=== PATIENT | male | born 1985 | race Caucasian/White ===

== ENCOUNTER 2016-07-21 17:55 | Emergency (ER) | payer SELFPAY ==
--- NOTE | 2016-07-21 19:03 | ER Document Report ---
ED Medical Screen (RME) - General Stated Complaint: VOMITING,DIARRHEA,DIZZY,FEVER Notes: 30 yo male c/o n/v/d, body aches x 2 days. + dizziness. + fever Physical Exam - Vital signs Vitals: Temp Pulse Resp BP Pulse Ox 98.0 F 79 16 131/80 H 99 07/21/16 18:42 07/21/16 18:42 07/21/16 18:42 07/21/16 18:42 07/21/16 18:42 Course - Vital Signs Vital signs: Temp Pulse Resp BP Pulse Ox 98.0 F 79 16 131/80 H 99 07/21/16 18:42 07/21/16 18:42 07/21/16 18:42 07/21/16 18:42 07/21/16 18:42
[2016-07-21 19:22] LABS: ABSOLUTE EOSINOPHILS # (AUTO) 0.1 10^3/uL (0.0-0.6); ABSOLUTE MONOCYTES (AUTO) 0.6 10^3/uL (0.1-1.4); ABSOLUTE NEUT (AUTO) 3.4 10^3/uL (1.7-8.2); BASOPHILS % (AUTO) 0.1 % (0-2); EOSINOPHILS % (AUTO) 1.6 % (0-6); HEMATOCRIT 47.9 % (37.9-51.0); HEMOGLOBIN 16.7 g/dL (13.5-17.0); HGB HCT DIFFERENCE 2.2; LYMPHOCYTES % (AUTO) 19.7 % (13-45); MEAN CORPUSCULAR HEMOGLOBIN 32.5 pg (27.0-33.4); MEAN CORPUSCULAR VOLUME 93 fl (80-97); MONOCYTES % (AUTO) 11.9 % (3-13); RED BLOOD COUNT 5.14 10^6/uL (4.35-5.55); RED CELL DISTRIBUTION WIDTH 13.8 % (11.5-14.0); SEGMENTED NEUTROPHILS % (AUTO) 66.7 % (42-78); WHITE BLOOD COUNT 5.1 10^3/uL (4.0-10.5)
[2016-07-21 19:42] LABS: ALANINE AMINOTRANSFERASE 31 U/L (21-72); ALBUMIN 4.1 g/dL (3.5-5.0); ALKALINE PHOSPHATASE 53 U/L (38-126); ANION GAP 10 (5-19); ASPARTATE AMINO TRANSFERASE 23 U/L (17-59); BILIRUBIN,TOTAL 0.7 mg/dL (0.2-1.3); BLOOD UREA NITROGEN 18 mg/dL (7-20); CARBON DIOXIDE 30 mmol/L (22-30); CHLORIDE 102 mmol/L (98-107); GLUCOSE 112 mg/dL (75-110); POTASSIUM 4.4 mmol/L (3.6-5.0); SODIUM 141.7 mmol/L (137-145); TOTAL PROTEIN 7.4 g/dL (6.3-8.2)
[2016-07-22] MEDS ORDERED: NORMAL SALINE 1000 ML 1,000 ML IV ONE (01:19)
[2016-07-22] MEDS ORDERED: ONDANSETRON 4 MG TAB.RAPDIS PO ONE (01:19)
[2016-07-22] MEDS ORDERED: FAMOTIDINE 20 MG TABLET PO ONE (01:19)
--- NOTE | 2016-07-22 01:20 | ER Document Report ---
ED General - General Chief Complaint: Flu Symptoms Stated Complaint: VOMITING,DIARRHEA,DIZZY,FEVER Notes: Patient is a 30-year-old male that comes emergency department for chief complaint of vomiting and diarrhea with chills since yesterday. Patient denies any blood in vomit or diarrhea. Patient denies any suspicious raw foods, denies any recent antibiotics, denies any surgeries, denies any medical problems. TRAVEL OUTSIDE OF THE [place] IN LAST 30 DAYS: No - Related Data Allergies/Adverse Reactions: No Known Allergies Allergy (Unverified 07/21/16 19:03) Past Medical History - General Information source: Patient - Social History Smoking Status: Current Every Day Smoker Chew tobacco use (# tins/day): No Frequency of alcohol use: None Drug Abuse: None Lives with: Family Family History: Reviewed & Not Pertinent Patient has suicidal ideation: No Patient has homicidal ideation: No - Medical History Medical History: Negative Renal/ Medical History: Denies: Hx Peritoneal Dialysis Surgical Hx: Negative - Immunizations Immunizations up to date: Yes Hx Diphtheria, Pertussis, Tetanus Vaccination: Yes Review of Systems - Review of Systems Constitutional: See HPI EENT: No symptoms reported Cardiovascular: No symptoms reported Respiratory: No symptoms reported Gastrointestinal: See HPI Genitourinary: No symptoms reported Male Genitourinary: No symptoms reported Musculoskeletal: No symptoms reported Skin: No symptoms reported Hematologic/Lymphatic: No symptoms reported Neurological/Psychological: No symptoms reported Physical Exam - Vital signs Vitals: Temp Pulse Resp BP Pulse Ox 98.0 F 79 16 131/80 H 99 07/21/16 18:42 07/21/16 18:42 07/21/16 18:42 07/21/16 18:42 07/21/16 18:42 Interpretation: Normal - General General appearance: Appears well, Alert In distress: None - HEENT Head: Normocephalic, Atraumatic Eyes: Normal Conjunctiva: Normal Extraocular movements intact: Yes Eyelashes: Normal Pupils: PERRL Sinus: Normal Nasal: Normal Mouth/Lips: Normal Mucous membranes: Dry Pharynx: Normal - Respiratory Respiratory status: No respiratory distress Chest status: Nontender Breath sounds: Normal Chest palpation: Normal - Cardiovascular Rhythm: Regular Heart sounds: Normal auscultation Murmur: No - Abdominal Inspection: Normal Distension: No distension Bowel sounds: Normal Tenderness: Tender - Mild left upper and left lower abdominal tenderness, soft and benign otherwise, no guarding Organomegaly: No organomegaly - Back Back: Normal, Nontender. No: Tender - Extremities General upper extremity: Normal inspection, Nontender, Normal ROM, Normal strength General lower extremity: Normal inspection, Nontender, Normal ROM, Normal strength - Neurological Neuro grossly intact: Yes Cognition: Normal Orientation: AAOx4 Dennis Coma Scale Eye Opening: Spontaneous Dennis Coma Scale Verbal: Oriented Dennis Coma Scale Motor: Obeys Commands Dennis Coma Scale Total: 15 Speech: Normal Motor strength normal: LUE, RUE, LLE, RLE Sensory: Normal - Psychological Associated symptoms: Normal affect, Normal mood - Skin Skin Temperature: Warm Skin Moisture: Dry Skin Color: Normal Course - Re-evaluation Re-evalutation: Unremarkable abdominal exam, CBC normal, chemistry shows mildly elevated creatinine at 1.3, patient given IV fluids. Patient tolerating by mouth, presentation, workup, and examination are most consistent with a gastroenteritis. Providing Zofran, Pepcid, discussed return precautions. Patient states understanding and agreement. - Vital Signs Vital signs: Temp Pulse Resp BP Pulse Ox 98.4 F 82 16 126/74 H 99 07/22/16 03:15 07/22/16 03:15 07/22/16 03:15 07/22/16 03:15 07/22/16 03:15 - Laboratory Result Diagrams: 07/21/16 19:05 07/21/16 19:05 Laboratory results interpreted by me: 07/21/16 19:05 Creatinine 1.30 H Glucose 112 H Discharge - Discharge Clinical Impression: Nausea vomiting and diarrhea Condition: Good Disposition: HOME, SELF-CARE Additional Instructions: Evaluation and workup are consistent with gastroenteritis, probably from a virus. Take the Zofran/phenergan and Pepcid as prescribed. Start with clear fluids, rest. Follow-up with primary care. Return to emergency department for any concerning or worsening symptoms including vomiting that will not stop, severe abdominal pain, etc. Prescriptions: Famotidine [Pepcid 20 mg Tablet] 20 mg PO BID #20 tablet Promethazine HCl [Phenergan 25 mg Tablet] 1 - 2 tab PO Q6H PRN #15 tablet PRN Reason: Forms: Return to Work
[2016-07-22] MEDS ORDERED: ONDANSETRON ODT 4 MG TAB (6 TAB/DSPK) PO PRN (02:30)
[2016-07-22 03:26] VITALS: BP 126/74
== END 2016-07-22 03:25 | disposition home or self-care (01) ==
LOC: ER 17:55
DX: R11.10 Vomiting, unspecified (principal); R19.7 Diarrhea, unspecified; R42 Dizziness and giddiness; R50.9 Fever, unspecified; F17.200 Nicotine dependence, unspecified, uncomplicated
CPT/HCPCS: 99283; 96360; 36415; 85025; 80053; S0119; J7030

== ENCOUNTER 2018-01-16 13:05 | Emergency (ER) | payer SELFPAY ==
[2018-01-16 13:17] VITALS: BP 143/95
--- NOTE | 2018-01-16 13:22 | ER Document Report ---
HPI - HPI Patient complains to provider of: numbness right fingers Onset: Other - intermittent months Pain Level: 3 Context: 32 yo male c/o numbness 2/3 finger, sometimes thumb and 5th. Gets soreness right periscapular area, no cervical injury. Worse for a month. Numbness worse at night. No weakness. Associated Symptoms: None Exacerbated by: Denies Relieved by: Denies - ROS ROS below otherwise negative: Yes Systems Reviewed and Negative: Yes All other systems reviewed and negative Past Medical History - General Information source: Patient - Social History Smoking Status: Never Smoker Frequency of alcohol use: None Drug Abuse: None Lives with: Spouse/Significant other Family History: Reviewed & Not Pertinent Renal/ Medical History: Denies: Hx Peritoneal Dialysis Surgical Hx: Negative - Immunizations Immunizations up to date: Yes Hx Diphtheria, Pertussis, Tetanus Vaccination: Yes Vertical Provider Document - CONSTITUTIONAL Agree With Documented VS: Yes Exam Limitations: No Limitations General Appearance: No Apparent Distress - INFECTION CONTROL TRAVEL OUTSIDE OF THE [place] IN LAST 30 DAYS: No - NECK Neck: Supple Notes: non tender c soine - RESPIRATORY Respiratory: Breath Sounds Normal, No Respiratory Distress - CARDIOVASCULAR Cardiovascular: Regular Rate, Regular Rhythm - MUSCULOSKELETAL/EXTREMETIES Musculoskeletal/Extremeties: MAEW, FROM, Tender - right periscapulr muscle - NEURO Level of Consciousness: Alert Motor/Sensory: No Motor Deficit, No Sensory Deficit Notes: strong medical referral coordinator, positive tinnels sign - DERM Integumentary: No Rash Course - Vital Signs Vital signs: Temp Pulse Resp BP Pulse Ox 97.4 F 73 16 143/95 H 100 01/16/18 13:15 01/16/18 13:15 01/16/18 13:15 01/16/18 13:15 01/16/18 13:15 Discharge - Discharge Clinical Impression: Carpal tunnel syndrome Qualifiers: Laterality: right Qualified Code(s): G56.01 - Carpal tunnel syndrome, right upper limb Condition: Good Disposition: HOME, SELF-CARE Instructions: Carpal Tunnel Syndrome ([facility]) Additional Instructions: overnight carpel tunnel splint see neurologist Forms: Return to Work Referrals: NAZARIO DAY MD [NO LOCAL MD] - Follow up as needed
== END 2018-01-16 14:02 | disposition home or self-care (01) ==
LOC: ER 13:05
DX: G56.01 Carpal tunnel syndrome, right upper limb (principal)
CPT/HCPCS: 99283